=== PATIENT | male | born 1965 | race African-American/Black ===

== ENCOUNTER 2018-03-09 10:35 | Emergency (ER) | END 2018-03-09 10:56 | disposition home or self-care (01) ==

== ENCOUNTER 2019-01-08 15:42 | Inpatient (IN) | payer OTHER ==
[~2019-01-08] VITALS: Ht 172.7 cm; Wt 78.6 kg
[~2019-01-08 15:42] MED LIST: CIPR500T4 PO; HYDR-4011 PO; QUET300T5 PO
[2019-01-08 20:56] VITALS: Ht 172.7 cm; Wt 78.6 kg
--- NOTE | 2019-01-08 21:28 | HP ---
Date/Time of Note Date/Time of Note DATE: 01/08/19 TIME: 21:28 Assessment/Plan VTE Prophylaxis SCD applied (from Nsg): Yes Pharmacological prophylaxis: NA/contraindicated Pharm contraindication: low risk/ambulating Assessment/Plan Hospital Course This a 53 year old male being admitted to the med surg floor for: #1 Right Nephrolothiasis with hydrouteronephrosis: 7mm right distal ureteral calculus. Cr. was. 2.01. IV fluid hydration with Normal saline. flomax. Strain urine. KUB in am. Will consult urology for possible procedural intervention. #2 JOSSELINE: secondary to obstructive uropathy. Cr. 2.01. Will monitor renal function, iv fluid hydration, flomax, monitor renal function. will consult urology. #3. Hx of nephrolithiasis: management as per above #4 illicit drug use: Reported to the RN recent use of amphetamines and cocaine, will check urine drug screen. PRN Ativan for any signs of withdrawal #5 dvt and gi prophylaxis: scds, no gi prophylaxis. shared services manager consult: patient is homeless. further treatment strategy as per the clinical course. HPI/ROS Admit Date/Time Admit Date/Time Jan 08, 2019 at 20:08 Hx of Present Illness Chief complaint: Right lower abdominal pain This is a 53-year-old homeless male who presented to [facility] with complaints of right lower abdominal pain. Patient was subsequent transferred to [facility] secondary to insurance purposes. Patient has a history of kidney stones and lithotripsy. He reports pain on the right lower abdomen/flank for the last two days. Denies any chest pain, nausea, vomitting, or sob. Does not report overt bleeding. The patient denied any drug history to me, he did report to the nurse that he does use amphetamines and cocaine and had used it recently. allergies: nkda meds: none Vitals on presentation to the transferring facility: Blood pressure 149/91/heart rate 100/temperature 98 F/respirations 18/pulse ox SPO2 100% on room air CBC: Showed white blood cell count of 12.2/hemoglobin 14.7/hematocrit 44.6/plate let count 316 BMP showed: Sodium 143/potassium 4.2/chloride 107/CO2 23/BUN 23/creatinine 2.01 Urinalysis showed: Large blood 3+ was negative for ketones negative for nitrites and negative for leuk esterase and white blood cells was 0-5 CT of the abdomen pelvis without contrast showed 7 mm right distal ureteral calculus resulting in moderate right-sided hydroureteronephrosis. Right-sided perinephric stranding is additionally noted. Bilateral renal calculi. Minimal colonic diverticulosis. Abundant amount of fecal matter within the colon. ROS Const: As per HPI Eyes : No pain discharge or redness or change in visual acuity ENT: No pain, sore throat, congestion, congestion, dysphagia or discharge Respiratory: No shortness of breath, cough, sputum, wheezing, or pleuritic pain Cardiovascular: No chest pain, palpitation, PND, or edema GI : no change in appetite, abdominal pain, nausea, vomiting, diarrhea, constipation, or change in the color his stool Genitourinary: As per HPI Musculoskeletal: No joint pain, back pain, neck pain, restricted range of motion in neck or joints Skin: No rash, bruising or hives Neuro: No headache, dizziness, syncope, seizure, focal weakness Endocrine: No polyuria, polydipsia, temperature intolerance Psych: No hallucination, depression, anxiety or suicidal ideation PMH/Family/Social Past Medical History Nephrolithiasis Coded Allergies: No Known Drug Allergies (Verified Allergy, Unknown, 03/07/18) Past Surgical History Laser lithotripsy, Insertion/removal of ureteral stent Family History Significant Family History: no pertinent family hx Social History Smoking Status: Current some day smoker Drug Use: cocaine, other (Methamphetamine) Exam/Review of Systems Exam Exam General: Patient is currently lying in bed he does not appear to be in any acute distress HEENT: Atraumatic, normocephalic. The pupils are equal, round and reactive. Extraocular motor are intact Neck: Supple with full range of motion. No rigidity or meningismus Chest: Nontender Lungs: Clear to auscultation bilaterally no crackles rales or wheezing Heart: Normal S1-S2, Regular rhythm and rate. No murmur, S3, or S4 Abdomen: Soft, nontender, nondistended, normal bowel sounds, patient currently does not have any CVA tenderness palpation bilaterally Extremities: Normal to inspection, no edema no cyanosis Neurologic: Normal mental status, speech normal, cranial nerves II through XII are intact, motor and sensory are intact, Psych: Currently appears to be cooperative and is not anxious EDU RO Jan 08, 2019:28
[2019-01-08] MEDS ORDERED: ONDANSETRON 4 MG INJ IV PRN (21:30)
[2019-01-08] MEDS ORDERED: ACETAMINOPHEN 325 MG TAB PO PRN (21:30)
[2019-01-08] MEDS ORDERED: BISACODYL (EC) 5 MG TAB PO PRN (21:30)
[2019-01-08] MEDS ORDERED: DOCUSATE SODIUM 100 MG CAP PO PRN (21:30)
[2019-01-08] MEDS ORDERED: NACL 0.9% 3 ML SYG IV SCH (21:30)
[2019-01-08] MEDS: SOD CHLORIDE 0.9% 1,000 ML IV SCH (21:58)
[2019-01-08] MEDS: TAMSULOSIN (SR) 0.4 MG CAP PO SCH (21:58)
[2019-01-08 22:15] VITALS: BP 157/93; PULSE 87; RESP 20
[2019-01-09] VITALS (8 sets, daily range): BP systolic 135–146; BP diastolic 76–90; PULSE 68–102; RESP 16–20
[2019-01-09] MEDS: CEFTRIAXONE 1 GM/50 ML (PMX) 50 ML IVPB SCH (02:11)
[2019-01-09] MEDS: HYDROCODONE/APAP (5/325) TAB PO PRN ×2 (03:24→16:21)
[2019-01-09] MEDS: HYDROmorphONE 0.5 MG/0.5 ML SYG IV PRN ×2 (04:25→19:12)
[2019-01-09] MEDS: SOD CHLORIDE 0.9% 1,000 ML IV SCH ×3 (06:32→21:21)
--- NOTE | 2019-01-09 12:22 | PN ---
Date/Time of Note Date/Time of Note DATE: 01/09/19 TIME: 12:20 Assessment/Plan VTE Prophylaxis Risk score (from Ns)>0 risk: 1 SCD applied (from Ns): No SCD contraindicated: other Pharmacological prophylaxis: NA/contraindicated Pharm contraindication: low risk/ambulating Lines/Catheters IV [facility]from [facility] Saline Lock Assessment/Plan Hospital Course SUBJECTIVE: Complains of a toothache. OBJECTIVE: Physical Exam General: Adequately build 53 year-old male lying in bed in no apparent distress. HEENT: Normocephalic, atraumatic. Eyes: Anicteric sclerae, conjunctivae clear. ENT: Nasal septum midline, oral mucosa moist. Neck supple, no JVD noticed. Respiratory: Bilaterally clear breath sounds. No use of accessory muscles of respiration. No adventitious breath sounds. Cardiovascular: S1, S2 heard. Regular rate and rhythm. Abdomen: Soft, nontender, and nondistended. Bowel sounds positive in all 4 quadrants. Genitourinary: Deferred. Extremities: No cyanosis, no clubbing, no edema. Peripheral pulses palpable. Neurologic: Cranial nerves II through XII grossly intact. The patient is awake, alert, and oriented. Skin: Normal skin turgor. No skin rashes. Labs & Vitals per chart ASSESSMENT & PLAN 53-year-old male who is homeless who presented to the local emergency room with chief complaint of right lower abdominal/flank pain. The patient was noticed to have a 7 mm right distal ureteral calculus with resultant moderate right-sided hydroureteronephrosis along with the right-sided perinephric stranding. The patient was transferred to [facility] for further evaluation and management because of insurance reasons. 1. 7 mm distal ureteral calculus with right-sided hydroureteronephrosis. -Continue pain control. -Continue empiric antimicrobials. -Urology evaluation pending. -Continue tamsulosin. 2. Positive urinalysis. -Secondary to underlying right sided ureteral calculus. -Continue continue empiric antimicrobials -Await final cultures. 3. Acute kidney injury. -Most probably secondary to underlying obstructive uropathy. -Monitor BUN and creatinine closely. -Use nephrotoxic drugs with caution. 4. Substance abuse -Drug screen positive for cocaine and amphetamines. -Cessation will be advised. 5. Homeless status. -Obtain social work consult. 6. Fluids, electrolytes, and nutrition. -Regular diet. 7. DVT prophylaxis. -Bilateral SCDs. 8. Plan. -Continue pain control. -Continue antimicrobials. -Continue straining of urine. -Await further urology recommendations. The patient was seen in collaboration with Dr. Fabian. Result Diagram: 01/09/19 0534 01/09/19 0534 Results 24hrs Laboratory Tests Test 01/08/19 21:48 01/08/19 23:30 01/09/19 05:34 Prothrombin Time 12.3 Prothrombin Time Ratio 1.0 INR International Normalized Ratio 0.90 Activated Partial Thromboplast Time 29.2 Urine Color YELLOW Urine Clarity CLEAR Urine pH 6.0 Urine Specific [place] 1.015 Urine Ketones TRACE A Urine Nitrite NEGATIVE Urine Bilirubin NEGATIVE Urine Urobilinogen NEGATIVE Urine Leukocyte Esterase TRACE A Urine Microscopic RBC 65 H Urine Microscopic WBC 15 H Urine Hemoglobin 3+ H Urine Glucose 1+ H Urine Total Protein NEGATIVE Urine Opiates Screen Negative Urine Barbiturates Negative Urine Amphetamines Screen POSITIVE Urine Benzodiazepines Screen Negative Urine Cocaine Screen Positive Urine Cannabinoids Negative White Blood Count 8.3 Red Blood Count 4.94 Hemoglobin 13.9 L Hematocrit 41.8 L Mean Corpuscular Volume 84.6 Mean Corpuscular Hemoglobin 28.1 L Mean Corpuscular Hemoglobin Concent 33.3 Red Cell Distribution Width 12.3 Platelet Count 275 Mean Platelet Volume 8.1 Immature Granulocytes % 0.200 Neutrophils % 71.7 Lymphocytes % 15.3 Monocytes % 11.0 Eosinophils % 1.4 Basophils % 0.4 Nucleated Red Blood Cells % 0.0 Immature Granulocytes # 0.020 Neutrophils # 6.0 Lymphocytes # 1.3 Monocytes # 0.9 Eosinophils # 0.1 Basophils # 0.0 Nucleated Red Blood Cells # 0.0 Sodium Level 140 Potassium Level 4.1 Chloride Level 106 Carbon Dioxide Level 24 Anion Gap 10 Blood Urea Nitrogen 20 Creatinine 1.82 H Est Glomerular Filtrat Rate mL/min 48 L Glucose Level 107 Calcium Level 8.8 Magnesium Level 2.1 Total Bilirubin 0.4 Direct Bilirubin 0.00 Indirect Bilirubin 0.4 Aspartate Amino Transf (AST/SGOT) 25 Alanine Aminotransferase (ALT/SGPT) 23 Alkaline Phosphatase 80 Total Protein 6.6 Albumin 3.5 Globulin 3.10 Albumin/Globulin Ratio 1.12 Exam/Review of Systems Exam Vitals Vital Signs Date Temp Pulse Resp B/P (MAP) Pulse Ox O2 O2 Flow FiO2 Time Delivery Rate 01/09/19 98.2 77 19 141/89 97 11:52 (106) Intake and Output 01/08/19 01/08/19 01/09/19 1515:00 23:00 07:00 IntakeIntake Total 1750 ml OutputOutput Total 800 ml BalanceBalance 950 ml Results Results 24hrs Laboratory Tests Test 01/08/19 21:48 01/08/19 23:30 01/09/19 05:34 Prothrombin Time 12.3 Prothrombin Time Ratio 1.0 INR International Normalized Ratio 0.90 Activated Partial Thromboplast Time 29.2 Urine Color YELLOW Urine Clarity CLEAR Urine pH 6.0 Urine Specific [place] 1.015 Urine Ketones TRACE A Urine Nitrite NEGATIVE Urine Bilirubin NEGATIVE Urine Urobilinogen NEGATIVE Urine Leukocyte Esterase TRACE A Urine Microscopic RBC 65 H Urine Microscopic WBC 15 H Urine Hemoglobin 3+ H Urine Glucose 1+ H Urine Total Protein NEGATIVE Urine Opiates Screen Negative Urine Barbiturates Negative Urine Amphetamines Screen POSITIVE Urine Benzodiazepines Screen Negative Urine Cocaine Screen Positive Urine Cannabinoids Negative White Blood Count 8.3 Red Blood Count 4.94 Hemoglobin 13.9 L Hematocrit 41.8 L Mean Corpuscular Volume 84.6 Mean Corpuscular Hemoglobin 28.1 L Mean Corpuscular Hemoglobin Concent 33.3 Red Cell Distribution Width 12.3 Platelet Count 275 Mean Platelet Volume 8.1 Immature Granulocytes % 0.200 Neutrophils % 71.7 Lymphocytes % 15.3 Monocytes % 11.0 Eosinophils % 1.4 Basophils % 0.4 Nucleated Red Blood Cells % 0.0 Immature Granulocytes # 0.020 Neutrophils # 6.0 Lymphocytes # 1.3 Monocytes # 0.9 Eosinophils # 0.1 Basophils # 0.0 Nucleated Red Blood Cells # 0.0 Sodium Level 140 Potassium Level 4.1 Chloride Level 106 Carbon Dioxide Level 24 Anion Gap 10 Blood Urea Nitrogen 20 Creatinine 1.82 H Est Glomerular Filtrat Rate mL/min 48 L Glucose Level 107 Calcium Level 8.8 Magnesium Level 2.1 Total Bilirubin 0.4 Direct Bilirubin 0.00 Indirect Bilirubin 0.4 Aspartate Amino Transf (AST/SGOT) 25 Alanine Aminotransferase (ALT/SGPT) 23 Alkaline Phosphatase 80 Total Protein 6.6 Albumin 3.5 Globulin 3.10 Albumin/Globulin Ratio 1.12 Medications Medication Current Medications Sodium Chloride 1,000 ml @ 125 mls/hr Q8H IV Last administered on 01/09/19at 06:32; Admin Dose 125 MLS/HR; Start 01/08/19 at 21:21 IV Flush (NS 3 ml) 3 ml PER PROTOCOL IV ; Start 01/08/19 at 21:30 Ondansetron HCl (Zofran Inj) 4 mg Q6H PRN IV NAUSEA/VOMITING; Start 01/08/19 at 21:30 Acetaminophen (Tylenol Tab) 650 mg Q6H PRN PO .PAIN 1-3 OR TEMP; Start 01/08/19 at 21:30 Acetaminophen/ Hydrocodone Bitart ([place] (5/325)) 1 tab Q6H PRN PO .MOD PAIN 4- 6 Last administered on 01/09/19at 03:24; Admin Dose 1 TAB; Start 01/08/19 at 21:30 Hydromorphone HCl (Dilaudid) 0.5 mg Q4H PRN IV .SEVERE PAIN 7-10 Last administered on 01/09/19 04:25; Admin Dose 0.5 MG; Start 01/08/19 at 21:30 Docusate Sodium (Colace) 100 mg Q12H PRN PO .CONSTIPATION; Start 01/08/19 at 21:30 Bisacodyl (Dulcolax) 5 mg DAILY PRN PO .CONSTIPATION; Start 01/08/19 at 21:30 Tamsulosin HCl (Flomax) 0.4 mg HS PO Last administered on 01/08/19at 21:58; Admin Dose 0.4 MG; Start 01/08/19 at 21:30 Ceftriaxone Sodium 50 ml @ 100 mls/hr Q24H IVPB Last administered on 01/09/19at 02:11; Admin Dose 100 MLS/HR; Start 01/09/19 at 02:00 Lorazepam (Ativan) 1 mg Q4H PRN IV AGITATION/ANXIETY; Start 01/09/19 at 02:00 PRASANNA CORTES NP Jan 09, 2019 12:22
[2019-01-09] MEDS: TAMSULOSIN (SR) 0.4 MG CAP PO SCH (20:22)
[2019-01-09] MEDS: LORAZEPAM 2 MG INJ IV PRN (20:23)
--- NOTE | 2019-01-09 21:27 | CONS ---
Assessment/Plan Assessment/Plan Hospital Course (Demo Recall) 53-year-old homeless male presented to [facility] wi th complaints of right lower abdominal pain. Patient was subsequent transferred to [facility] secondary to insurance purposes. Patient has a history of kidney stones and lithotripsy. He reports pain on the right lower abdomen/flank for the last two days prior to admission. Denies any nausea or vomiting and there is no history of hematuria or dysuria. He did have left upper ureteral stone on which I operated about an year ago KUB done did not show the stone. The stone could be radiolucent or could be obscured by the bowel contents or the bony pelvis We will strain the urine and put him on tamsulosin, repeat the KUB in a.m. and manage his pain. If he does not pass the stone we may have to do a cystoscopy and right ureteroscopy laser lithotripsy and insert a JJ stent. Consultation Date/Type/Reason Admit Date/Time Jan 08, 2019 at 20:08 Date of Consultation: Jan 09, 2019 Type of Consult Urology Reason for Consultation Distal right ureteral stone Requesting Provider: EDU RO Date/Time of Note DATE: 01/09/19 TIME: 21:21 Hx of Present Illness 53-year-old homeless male presented to [facility] with complaints of right lower abdominal pain. Patient was subsequent transferred to [facility] secondary to insurance purposes. Patient has a history of kidney stones and lithotripsy. He reports pain on the right lower abdomen/flank for the last two days prior to admission. Denies any nausea or vomiting and there is no history of hematuria or dysuria. He did have left upper ureteral stone on which I operated about an year ago Constitutional: no complaints Eyes: no complaints ENT: no complaints Respiratory: no complaints Cardiovascular: no complaints Gastrointestinal: no complaints; No nausea, No vomiting Genitourinary: flank pain (Right side) Musculoskeletal: no complaints Skin: no complaints Neurologic: no complaints Endocrine: no complaints Lymphatic: no complaints Psychological: no complaints Past Medical History Medical History: other (History of kidney stones) Home Meds Active Scripts Hydrocodone/Acetaminophen ([place] 5-325 Tablet) 1 Each Tablet, 1 TAB PO Q6H PRN for PAIN, #30 TAB Prov:TESSA PIMENTEL PA-C 03/09/18 Hydrocodone/Acetaminophen ([place] 5-325 Tablet) 1 Each Tablet, 1 TAB PO Q6H PRN for PAIN, #30 TAB Prov:TESSA PIMENTEL PA-C 03/09/18 Ciprofloxacin Hcl* (Ciprofloxacin Hcl*) 500 Mg Tablet, 500 MG PO BID for 7 Days, TAB Prov:TESSA PIMENTEL PA-C 03/09/18 Reported Medications Quetiapine Fumarate* (Seroquel* XR) 300 Mg Tab.sr.24h, 300 MG PO DAILY PRN for NEEDED, #30 TAB 03/07/18 Medications Current Medications Sodium Chloride 1,000 ml @ 125 mls/hr Q8H IV Last administered on 01/09/19at 06:32; Admin Dose 125 MLS/HR; Start 01/08/19 at 21:21 IV Flush (NS 3 ml) 3 ml PER PROTOCOL IV ; Start 01/08/19 at 21:30 Ondansetron HCl (Zofran Inj) 4 mg Q6H PRN IV NAUSEA/VOMITING; Start 01/08/19 at 21:30 Acetaminophen (Tylenol Tab) 650 mg Q6H PRN PO .PAIN 1-3 OR TEMP Last administered on 01/09/19at 20:23; Admin Dose 650 MG; Start 01/08/19 at 21:30 Acetaminophen/ Hydrocodone Bitart ([place] (5/325)) 1 tab Q6H PRN PO .MOD PAIN 4- 6 Last administered on 01/09/19at 16:21; Admin Dose 1 TAB; Start 01/08/19 at 21:30 Hydromorphone HCl (Dilaudid) 0.5 mg Q4H PRN IV .SEVERE PAIN 7-10 Last administered on 01/09/19at 19:12; Admin Dose 0.5 MG; Start 01/08/19 at 21:30 Docusate Sodium (Colace) 100 mg Q12H PRN PO .CONSTIPATION; Start 01/08/19 at 21:30 Bisacodyl (Dulcolax) 5 mg DAILY PRN PO .CONSTIPATION; Start 01/08/19 at 21:30 Tamsulosin HCl (Flomax) 0.4 mg HS PO Last administered on 01/09/19at 20:22; Admin Dose 0.4 MG; Start 01/08/19 at 21:30 Ceftriaxone Sodium 50 ml @ 100 mls/hr Q24H IVPB Last administered on 01/09/19at 02:11; Admin Dose 100 MLS/HR; Start 01/09/19 at 02:00 Lorazepam (Ativan) 1 mg Q4H PRN IV AGITATION/ANXIETY Last administered on at 20:23; Admin Dose 1 MG; Start 01/09/19 at 02:00 Allergies: Coded Allergies: No Known Drug Allergies (Verified Allergy, Unknown, 03/07/18) Past Surgical History Past Surgical Hx: other (Left ureteroscopy and laser lithotripsy in February 2018) Social History Alcohol Use: sober Smoking Status: Current some day smoker Drug Use: cocaine, other (Methamphetamine) Exam/Review of Systems Exam Vitals Vital Signs Date Temp Pulse Resp B/P (MAP) Pulse Ox O2 O2 Flow FiO2 Time Delivery Rate 01/09/19 97.9 97 16 146/89 97 Room Air 17:19 (108) Intake and Output 01/08/19 01/08/19 01/09/19 1515:00 23:00 07:00 IntakeIntake Total 1750 ml OutputOutput Total 800 ml BalanceBalance 950 ml Constitutional: alert, oriented Psych: no complaints Head: normocephalic Eyes: nl conjunctiva ENMT: nl external ears & nose Neck: supple Respiratory: normal air movement; No wheezing Cardiovascular: No jugular venous distention (JVD) Gastrointestinal: tender (Right lower quadrant) Genitourinary - Male: nl penis, nl scrotum, CVA tenderness (Right side) Musculoskeletal: nl extremities to inspection Extremities: No calf tenderness Neurological: nl mental status Skin: nl turgor Results Result Diagram: 01/09/19 0534 01/09/19 0534 Results 24hrs Laboratory Tests Test 01/08/19 21:48 01/08/19 23:30 01/09/19 05:34 Prothrombin Time 12.3 Prothrombin Time Ratio 1.0 INR International Normalized Ratio 0.90 Activated Partial Thromboplast Time 29.2 Urine Color YELLOW Urine Clarity CLEAR Urine pH 6.0 Urine Specific [place] 1.015 Urine Ketones TRACE A Urine Nitrite NEGATIVE Urine Bilirubin NEGATIVE Urine Urobilinogen NEGATIVE Urine Leukocyte Esterase TRACE A Urine Microscopic RBC 65 H Urine Microscopic WBC 15 H Urine Hemoglobin 3+ H Urine Glucose 1+ H Urine Total Protein NEGATIVE Urine Opiates Screen Negative Urine Barbiturates Negative Urine Amphetamines Screen POSITIVE Urine Benzodiazepines Screen Negative Urine Cocaine Screen Positive Urine Cannabinoids Negative White Blood Count 8.3 Red Blood Count 4.94 Hemoglobin 13.9 L Hematocrit 41.8 L Mean Corpuscular Volume 84.6 Mean Corpuscular Hemoglobin 28.1 L Mean Corpuscular Hemoglobin Concent 33.3 Red Cell Distribution Width 12.3 Platelet Count 275 Mean Platelet Volume 8.1 Immature Granulocytes % 0.200 Neutrophils % 71.7 Lymphocytes % 15.3 Monocytes % 11.0 Eosinophils % 1.4 Basophils % 0.4 Nucleated Red Blood Cells % 0.0 Immature Granulocytes # 0.020 Neutrophils # 6.0 Lymphocytes # 1.3 Monocytes # 0.9 Eosinophils # 0.1 Basophils # 0.0 Nucleated Red Blood Cells # 0.0 Sodium Level 140 Potassium Level 4.1 Chloride Level 106 Carbon Dioxide Level 24 Anion Gap 10 Blood Urea Nitrogen 20 Creatinine 1.82 H Est Glomerular Filtrat Rate mL/min 48 L Glucose Level 107 Calcium Level 8.8 Magnesium Level 2.1 Total Bilirubin 0.4 Direct Bilirubin 0.00 Indirect Bilirubin 0.4 Aspartate Amino Transf (AST/SGOT) 25 Alanine Aminotransferase (ALT/SGPT) 23 Alkaline Phosphatase 80 Total Protein 6.6 Albumin 3.5 Globulin 3.10 Albumin/Globulin Ratio 1.[address] scan done at [facility] showed a 7 mm in the distal right ureter. He also does have multiple small punctate stones over both kidneys Medications Medication Current Medications Sodium Chloride 1,000 ml @ 125 mls/hr Q8H IV Last administered on 01/09/19at 06:32; Admin Dose 125 MLS/HR; Start 01/08/19 at 21:21 IV Flush (NS 3 ml) 3 ml PER PROTOCOL IV ; Start 01/08/19 at 21:30 Ondansetron HCl (Zofran Inj) 4 mg Q6H PRN IV NAUSEA/VOMITING; Start 01/08/19 at 21:30 Acetaminophen (Tylenol Tab) 650 mg Q6H PRN PO .PAIN 1-3 OR TEMP Last administered on 01/09/19at 20:23; Admin Dose 650 MG; Start 01/08/19 at 21:30 Acetaminophen/ Hydrocodone Bitart ([place] (5/325)) 1 tab Q6H PRN PO .MOD PAIN 4- 6 Last administered on 01/09/19 16:21; Admin Dose 1 TAB; Start 01/08/19 at 21:30 Hydromorphone HCl (Dilaudid) 0.5 mg Q4H PRN IV .SEVERE PAIN 7-10 Last administered on 01/09/19at 19:12; Admin Dose 0.5 MG; Start 01/08/19 at 21:30 Docusate Sodium (Colace) 100 mg Q12H PRN PO .CONSTIPATION; Start 01/08/19 at 21:30 Bisacodyl (Dulcolax) 5 mg DAILY PRN PO .CONSTIPATION; Start 01/08/19 at 21:30 Tamsulosin HCl (Flomax) 0.4 mg HS PO Last administered on 01/09/19 20:22; Admin Dose 0.4 MG; Start 01/08/19 at 21:30 Ceftriaxone Sodium 50 ml @ 100 mls/hr Q24H IVPB Last administered on 01/09/19 02:11; Admin Dose 100 MLS/HR; Start 01/09/19 at 02:00 Lorazepam (Ativan) 1 mg Q4H PRN IV AGITATION/ANXIETY Last administered on 01/09/19 20:23; Admin Dose 1 MG; Start 01/09/19 at 02:00 ESTEPHANIA WONG MD Jan 09, 2019 21:27
[2019-01-10] MEDS: HYDROmorphONE 0.5 MG/0.5 ML SYG IV PRN ×4 (00:14→22:25)
[2019-01-10] MEDS: SOD CHLORIDE 0.9% 1,000 ML IV SCH ×4 (01:14→22:27)
[2019-01-10] MEDS: CEFTRIAXONE 1 GM/50 ML (PMX) 50 ML IVPB SCH (01:15)
[2019-01-10 02:00] VITALS: BP 146/88; PULSE 81; RESP 20
[2019-01-10] MEDS: HYDROCODONE/APAP (5/325) TAB PO PRN (07:05)
--- NOTE | 2019-01-10 07:57 | PN ---
Date/Time of Note Date/Time of Note DATE: 01/10/19 TIME: 07:57 Assessment/Plan VTE Prophylaxis Risk score (from Nsg)>0 risk: 1 SCD applied (from Nsg): Yes Pharmacological prophylaxis: NA/contraindicated Pharm contraindication: low risk/ambulating Lines/Catheters IV Catheter Type (from Nrsg): Peripheral IV Assessment/Plan Hospital Course SUBJECTIVE: Complains of right flank pain. OBJECTIVE: Physical Exam General: Adequately build 53 year-old male lying in bed in no apparent distress. HEENT: Normocephalic, atraumatic. Eyes: Anicteric sclerae, conjunctivae clear. ENT: Nasal septum midline, oral mucosa moist. Neck supple, no JVD noticed. Respiratory: Bilaterally clear breath sounds. No use of accessory muscles of respiration. No adventitious breath sounds. Cardiovascular: S1, S2 heard. Regular rate and rhythm. Abdomen: Soft, nontender, and nondistended. Bowel sounds positive in all 4 quadrants. Genitourinary: Deferred. Extremities: No cyanosis, no clubbing, no edema. Peripheral pulses palpable. Neurologic: Cranial nerves II through XII grossly intact. The patient is awake, alert, and oriented. Skin: Normal skin turgor. No skin rashes. Labs & Vitals per chart ASSESSMENT & PLAN 53-year-old male who is homeless who presented to the local emergency room with chief complaint of right lower abdominal/flank pain. The patient was noticed to have 7 mm right distal ureteral calculus with resultant moderate right-sided hydroureteronephrosis along with the right-sided perinephric stranding. The patient was transferred to [facility] for further evaluation and management because of insurance reasons. 1. 7 mm distal ureteral calculus with right-sided hydroureteronephrosis. -Continue pain control. -Continue empiric antimicrobials. -Urology evaluation pending. -Continue tamsulosin. 2. Positive urinalysis. -Secondary to underlying right sided ureteral calculus. -Continue continue empiric antimicrobials -Await final cultures. 3. Acute kidney injury. -Most probably secondary to underlying obstructive uropathy. -Monitor BUN and creatinine closely. -Use nephrotoxic drugs with caution. 4. Substance abuse -Drug screen positive for cocaine and amphetamines. -Cessation will be advised. 5. Homeless status. -Obtain social work consult. 6. Fluids, electrolytes, and nutrition. -Regular diet. 7. DVT prophylaxis. -Bilateral SCDs. 8. Plan. -Continue pain control. -Continue antimicrobials. -Continue straining of urine. -Await further urology recommendations. The patient was seen in collaboration with Dr. Fabian. Result Diagram: 01/10/19 0446 01/10/19 0446 Results 24hrs Laboratory Tests Test 01/10/19 04:46 White Blood Count 7.0 Red Blood Count 4.83 Hemoglobin 13.5 L Hematocrit 41.3 L Mean Corpuscular Volume 85.5 Mean Corpuscular Hemoglobin 28.0 L Mean Corpuscular Hemoglobin Concent 32.7 Red Cell Distribution Width 12.3 Platelet Count 256 Mean Platelet Volume 8.0 Immature Granulocytes % 0.400 Neutrophils % 65.9 Lymphocytes % 19.3 Monocytes % 11.9 H Eosinophils % 2.1 Basophils % 0.4 Nucleated Red Blood Cells % 0.0 Immature Granulocytes # 0.030 Neutrophils # 4.6 Lymphocytes # 1.4 Monocytes # 0.8 Eosinophils # 0.2 Basophils # 0.0 Nucleated Red Blood Cells # 0.0 Sodium Level 143 Potassium Level 4.2 Chloride Level 110 Carbon Dioxide Level 25 Anion Gap 8 Blood Urea Nitrogen 22 H Creatinine 1.73 H Est Glomerular Filtrat Rate mL/min 50 L Glucose Level 124 Calcium Level 8.9 Phosphorus Level 3.8 Magnesium Level 2.2 Exam/Review of Systems Exam Vitals Vital Signs Date Temp Pulse Resp B/P (MAP) Pulse Ox O2 O2 Flow FiO2 Time Delivery Rate 01/10/19 98.0 81 20 146/88 94 Room Air 02:00 (107) Intake and Output 01/09/19 01/09/19 01/10/19 1515:00 23:00 07:00 IntakeIntake Total 1500 ml 1050 ml OutputOutput Total 900 ml 750 ml BalanceBalance 600 ml 300 ml Results Results 24hrs Laboratory Tests Test 01/10/19 04:46 White Blood Count 7.0 Red Blood Count 4.83 Hemoglobin 13.5 L Hematocrit 41.3 L Mean Corpuscular Volume 85.5 Mean Corpuscular Hemoglobin 28.0 L Mean Corpuscular Hemoglobin Concent 32.7 Red Cell Distribution Width 12.3 Platelet Count 256 Mean Platelet Volume 8.0 Immature Granulocytes % 0.400 Neutrophils % 65.9 Lymphocytes % 19.3 Monocytes % 11.9 H Eosinophils % 2.1 Basophils % 0.4 Nucleated Red Blood Cells % 0.0 Immature Granulocytes # 0.030 Neutrophils # 4.6 Lymphocytes # 1.4 Monocytes # 0.8 Eosinophils # 0.2 Basophils # 0.0 Nucleated Red Blood Cells # 0.0 Sodium Level 143 Potassium Level 4.2 Chloride Level 110 Carbon Dioxide Level 25 Anion Gap 8 Blood Urea Nitrogen 22 H Creatinine 1.73 H Est Glomerular Filtrat Rate mL/min 50 L Glucose Level 124 Calcium Level 8.9 Phosphorus Level 3.8 Magnesium Level 2.2 Medications Medication Current Medications Sodium Chloride 1,000 ml @ 125 mls/hr Q8H IV Last administered on 01/10/19at 0 1:14; Admin Dose 125 MLS/HR; Start 01/08/19 at 21:21 IV Flush (NS 3 ml) 3 ml PER PROTOCOL IV ; Start 01/08/19 at 21:30 Ondansetron HCl (Zofran Inj) 4 mg Q6H PRN IV NAUSEA/VOMITING; Start 01/08/19 at 21:30 Acetaminophen (Tylenol Tab) 650 mg Q6H PRN PO .PAIN 1-3 OR TEMP Last administered on 01/09/19at 20:23; Admin Dose 650 MG; Start 01/08/19 at 21:30 Acetaminophen/ Hydrocodone Bitart ([place] (5/325)) 1 tab Q6H PRN PO .MOD PAIN 4- 6 Last administered on 01/10/19at 07:05; Admin Dose 1 TAB; Start 01/08/19 at 21:30 Hydromorphone HCl (Dilaudid) 0.5 mg Q4H PRN IV .SEVERE PAIN 7-10 Last administered on 01/10/19at 05:27; Admin Dose 0.5 MG; Start 01/08/19 at 21:30 Docusate Sodium (Colace) 100 mg Q12H PRN PO .CONSTIPATION; Start 01/08/19 at 21:30 Bisacodyl (Dulcolax) 5 mg DAILY PRN PO .CONSTIPATION; Start 01/08/19 at 21:30 Tamsulosin HCl (Flomax) 0.4 mg HS PO Last administered on 01/09/19at 20:22; Admin Dose 0.4 MG; Start 01/08/19 at 21:30 Ceftriaxone Sodium 50 ml @ 100 mls/hr Q24H IVPB Last administered on 01/10/19at 01:15; Admin Dose 100 MLS/HR; Start 01/09/19 at 02:00 Lorazepam (Ativan) 1 mg Q4H PRN IV AGITATION/ANXIETY Last administered on 01/09/19at 20:23; Admin Dose 1 MG; Start 01/09/19 at 02:00 PRASANNA CORTES NP Jan 10, 2019 07:57
[2019-01-10 08:21] VITALS: BP 158/96; PULSE 85; RESP 18
[2019-01-10] MEDS: MUPIROCIN 2% 22 GM OINT TOP SCH ×2 (12:36→21:58)
--- NOTE | 2019-01-10 13:33 | CONS ---
Consult Date/Type/Reason Admit Date/Time Jan 09, 2019 at 15:29 Initial Consult Date 01/09/19 Type of Consultation: Urology Reason for Consultation Distal right ureteral stone Requesting Provider: EDU RO Date/Time of Note DATE: 01/10/19 TIME: 13:29 Subjective Patient is comfortable at the present and has no severe pain. Objective Vitals Vital Signs Date Temp Pulse Resp B/P (MAP) Pulse Ox O2 O2 Flow FiO2 Time Delivery Rate 01/10/19 97.7 85 18 158/96 99 08:21 (116) 01/10/19 Room Air 02:00 Intake and Output 01/09/19 01/09/19 01/10/19 1515:00 23:00 07:00 IntakeIntake Total 1500 ml 1050 ml OutputOutput Total 900 ml 750 ml BalanceBalance 600 ml 300 ml Exam Mild right lower quadrant tenderness. The urine is clear. KUB was done and the stone is not seen as it may be obscured by the bowel content. Results/Medications Result Diagram: 01/10/19 0446 01/10/19 0446 Results 24 hrs Laboratory Tests Test 01/10/19 04:46 01/10/19 11:45 White Blood Count 7.0 Red Blood Count 4.83 Hemoglobin 13.5 L Hematocrit 41.3 L Mean Corpuscular Volume 85.5 Mean Corpuscular Hemoglobin 28.0 L Mean Corpuscular Hemoglobin Concent 32.7 Red Cell Distribution Width 12.3 Platelet Count 256 Mean Platelet Volume 8.0 Immature Granulocytes % 0.400 Neutrophils % 65.9 Lymphocytes % 19.3 Monocytes % 11.9 H Eosinophils % 2.1 Basophils % 0.4 Nucleated Red Blood Cells % 0.0 Immature Granulocytes # 0.030 Neutrophils # 4.6 Lymphocytes # 1.4 Monocytes # 0.8 Eosinophils # 0.2 Basophils # 0.0 Nucleated Red Blood Cells # 0.0 Sodium Level 143 Potassium Level 4.2 Chloride Level 110 Carbon Dioxide Level 25 Anion Gap 8 Blood Urea Nitrogen 22 H Creatinine 1.73 H Est Glomerular Filtrat Rate mL/min 50 L Glucose Level 124 Calcium Level 8.9 Phosphorus Level 3.8 Magnesium Level 2.2 Lab Scanned Report REFERENCE LAB Positive MRSA from the nares, multidrug-resistant organism Home Meds Active Scripts Hydrocodone/Acetaminophen ([place] 5-325 Tablet) 1 Each Tablet, 1 TAB PO Q6H PRN for PAIN, #30 TAB Prov:TESSA PIMENTEL PA-C 03/09/18 Hydrocodone/Acetaminophen ([place] 5-325 Tablet) 1 Each Tablet, 1 TAB PO Q6H PRN for PAIN, #30 TAB Prov:TESSA PIMENTEL PA-C 03/09/18 Ciprofloxacin Hcl* (Ciprofloxacin Hcl*) 500 Mg Tablet, 500 MG PO BID for 7 Days, TAB Prov:TESSA PIMENTEL PA-C 03/09/18 Reported Medications Quetiapine Fumarate* (Seroquel* XR) 300 Mg Tab.sr.24h, 300 MG PO DAILY PRN for NEEDED, #30 TAB 03/07/18 Medications Current Medications Sodium Chloride 1,000 ml @ 125 mls/hr Q8H IV Last administered on 01/10/19 01:14; Admin Dose 125 MLS/HR; Start 01/08/19 at 21:21 IV Flush (NS 3 ml) 3 ml PER PROTOCOL IV ; Start 01/08/19 at 21:30 Ondansetron HCl (Zofran Inj) 4 mg Q6H PRN IV NAUSEA/VOMITING; Start 01/08/19 at 21:30 Acetaminophen (Tylenol Tab) 650 mg Q6H PRN PO .PAIN 1-3 OR TEMP Last administered on 01/09/19 20:23; Admin Dose 650 MG; Start 01/08/19 at 21:30 Acetaminophen/ Hydrocodone Bitart ([place] (5/325)) 1 tab Q6H PRN PO .MOD PAIN 4- 6 Last administered on 01/10/19 07:05; Admin Dose 1 TAB; Start 01/08/19 at 21:30 Hydromorphone HCl (Dilaudid) 0.5 mg Q4H PRN IV .SEVERE PAIN 7-10 Last administered on 01/10/19 09:38; Admin Dose 0.5 MG; Start 01/08/19 at 21:30 Docusate Sodium (Colace) 100 mg Q12H PRN PO .CONSTIPATION; Start 01/08/19 at 21:30 Bisacodyl (Dulcolax) 5 mg DAILY PRN PO .CONSTIPATION; Start 01/08/19 at 21:30 Tamsulosin HCl (Flomax) 0.4 mg HS PO Last administered on 3/22/19at 20:22; Admin Dose 0.4 MG; Start 01/08/19 at 21:30 Ceftriaxone Sodium 50 ml @ 100 mls/hr Q24H IVPB Last administered on 01/10/19 01:15; Admin Dose 100 MLS/HR; Start 01/09/19 at 02:00 Lorazepam (Ativan) 1 mg Q4H PRN IV AGITATION/ANXIETY Last administered on 01/09/19 20:23; Admin Dose 1 MG; Start 01/09/19 at 02:00 Mupirocin (Bactroban) 1 applic BID TOP Last administered on 01/10/19 12:36; Admin Dose 1 APPLIC; Start 01/10/19 at 10:30 Assessment/Plan Hospital Course (Demo Recall) 53-year-old homeless male presented to [facility] with complaints of right lower abdominal pain. Patient was subsequent transferred to [facility] secondary to insurance purposes. Patient has a history of kidney stones and lithotripsy. He reports pain on the right lower abdomen/flank for the last two days prior to admission. Denies any nausea or vomiting and there is no history of hematuria or dysuria. He did have left upper ureteral stone on which I operated about an year ago KUB repeated and did not show the stone. The stone could be radiolucent or could be obscured by the bowel contents or the bony pelvis Continue to strain the urine and put him on tamsulosin, give him milk of magnesia, repeat the KUB in a.m. and manage his pain. If he does not pass the stone we may have to do a cystoscopy and right ureteroscopy laser lithotripsy and insert a JJ stent. ESTEPHANIA WONG MD Jan 10, 2019 13:33
[2019-01-10 14:00] VITALS: BP 148/88; PULSE 87; RESP 17
[2019-01-10] MEDS ORDERED: MAGNESIUM HYDROXIDE 30ML CUP PO PRN (14:00)
[2019-01-10] MEDS ORDERED: MAGNESIUM HYDROXIDE 30ML CUP PO ONE (14:00)
[2019-01-10 17:04] VITALS: BP 174/104; PULSE 97; RESP 32
[2019-01-10] MEDS ORDERED: LORAZEPAM 2 MG INJ IV STA (17:06)
[2019-01-10] MEDS: LORAZEPAM 2 MG INJ IV PRN ×2 (17:14→22:51)
[2019-01-10 18:03] VITALS: BP 141/84; PULSE 89; RESP 16
[2019-01-10 20:30] VITALS: BP 131/77; RESP 18
[2019-01-10] MEDS: TAMSULOSIN (SR) 0.4 MG CAP PO SCH (21:58)
[2019-01-11 01:34] VITALS: BP 146/88; PULSE 99; RESP 19
[2019-01-11] MEDS: CEFTRIAXONE 1 GM/50 ML (PMX) 50 ML IVPB SCH (02:31)
[2019-01-11] MEDS: SOD CHLORIDE 0.9% 1,000 ML IV SCH ×2 (06:16→18:00)
--- NOTE | 2019-01-11 08:01 | PN ---
Date/Time of Note Date/Time of Note DATE: 01/11/19 TIME: 08:01 Assessment/Plan VTE Prophylaxis Risk score (from Nsg)>0 risk: 1 SCD applied (from Nsg): Yes Pharmacological prophylaxis: NA/contraindicated Pharm contraindication: low risk/ambulating Lines/Catheters IV Catheter Type (from Nrsg): Peripheral IV Urinary Cath still in place: No Assessment/Plan Hospital Course SUBJECTIVE: Right flank pain better controlled. OBJECTIVE: Physical Exam General: Adequately build 53 year-old male lying in bed in no apparent distress. HEENT: Normocephalic, atraumatic. Eyes: Anicteric sclerae, conjunctivae clear. ENT: Nasal septum midline, oral mucosa moist. Neck supple, no JVD noticed. Respiratory: Bilaterally clear breath sounds. No use of accessory muscles of respiration. No adventitious breath sounds. Cardiovascular: S1, S2 heard. Regular rate and rhythm. Abdomen: Soft, nontender, and nondistended. Bowel sounds positive in all 4 quadrants. Genitourinary: Deferred. Extremities: No cyanosis, no clubbing, no edema. Peripheral pulses palpable. Neurologic: Cranial nerves II through XII grossly intact. The patient is awake, alert, and oriented. Skin: Normal skin turgor. No skin rashes. Labs & Vitals per chart ASSESSMENT & PLAN 53-year-old male who is homeless who presented to the local emergency room with chief complaint of right lower abdominal/flank pain. The patient was noticed to have 7 mm right distal ureteral calculus with resultant moderate right-sided hydroureteronephrosis along with the right-sided perinephric stranding. The patient was transferred to [facility] for further evaluation and management because of insurance reasons. 1. 7 mm distal ureteral calculus with right-sided hydroureteronephrosis. -Continue pain control. -Continue empiric antimicrobials. -Urology evaluation pending. -Continue tamsulosin. 2. Positive urinalysis. -Secondary to underlying right sided ureteral calculus. -Continue continue empiric antimicrobials -Await final cultures. 3. Acute kidney injury. -Most probably secondary to underlying obstructive uropathy. -Monitor BUN and creatinine closely. -Use nephrotoxic drugs with caution. 4. Substance abuse -Drug screen positive for cocaine and amphetamines. -Cessation will be advised. 5. MRSA colonization of the nares. -Continue Bactroban. 6. Homeless status. -Obtain social work consult. 7. Fluids, electrolytes, and nutrition. -Regular diet. 8. DVT prophylaxis. -Bilateral SCDs. 9. Plan. -Continue pain control. -Continue antimicrobials. -Continue straining of urine. -Await further urology recommendations. The patient was seen in collaboration with Dr. Fabian. Result Diagram: 01/11/19 0441 01/11/191 Results 24hrs Laboratory Tests Test 01/10/19 11:45 01/11/19 04:41 Lab Scanned Report REFERENCE LAB White Blood Count 8.3 Red Blood Count 4.81 Hemoglobin 13.8 L Hematocrit 41.0 L Mean Corpuscular Volume 85.2 Mean Corpuscular Hemoglobin 28.7 L Mean Corpuscular Hemoglobin Concent 33.7 Red Cell Distribution Width 11.9 Platelet Count 273 Mean Platelet Volume 8.0 Immature Granulocytes % 0.200 Neutrophils % 71.5 Lymphocytes % 16.5 Monocytes % 9.4 Eosinophils % 1.8 Basophils % 0.6 Nucleated Red Blood Cells % 0.0 Immature Granulocytes # 0.020 Neutrophils # 5.9 Lymphocytes # 1.4 Monocytes # 0.8 Eosinophils # 0.2 Basophils # 0.1 Nucleated Red Blood Cells # 0.0 Sodium Level 142 Potassium Level 4.3 Chloride Level 110 Carbon Dioxide Level 26 Anion Gap 6 Blood Urea Nitrogen 23 H Creatinine 1.58 H Est Glomerular Filtrat Rate mL/min 56 L Glucose Level 107 Calcium Level 8.9 Phosphorus Level 3.9 Magnesium Level 2.2 Exam/Review of Systems Exam Vitals Vital Signs Date Temp Pulse Resp B/P (MAP) Pulse Ox O2 O2 Flow FiO2 Time Delivery Rate 01/11/19 98.6 99 19 146/88 97 01:34 (107) 01/10/19 Room Air 18:03 Intake and Output 01/10/19 01/10/19 01/11/19 1515:00 23:00 07:00 IntakeIntake Total 240 ml 1640 ml 1170 ml OutputOutput Total 900 ml 1100 ml 250 ml BalanceBalance -660 ml 540 ml 920 ml Results Results 24hrs Laboratory Tests Test 01/10/19 11:45 01/11/19 04:41 Lab Scanned Report REFERENCE LAB White Blood Count 8.3 Red Blood Count 4.81 Hemoglobin 13.8 L Hematocrit 41.0 L Mean Corpuscular Volume 85.2 Mean Corpuscular Hemoglobin 28.7 L Mean Corpuscular Hemoglobin Concent 33.7 Red Cell Distribution Width 11.9 Platelet Count 273 Mean Platelet Volume 8.0 Immature Granulocytes % 0.200 Neutrophils % 71.5 Lymphocytes % 16.5 Monocytes % 9.4 Eosinophils % 1.8 Basophils % 0.6 Nucleated Red Blood Cells % 0.0 Immature Granulocytes # 0.020 Neutrophils # 5.9 Lymphocytes # 1.4 Monocytes # 0.8 Eosinophils # 0.2 Basophils # 0.1 Nucleated Red Blood Cells # 0.0 Sodium Level 142 Potassium Level 4.3 Chloride Level 110 Carbon Dioxide Level 26 Anion Gap 6 Blood Urea Nitrogen 23 H Creatinine 1.58 H Est Glomerular Filtrat Rate mL/min 56 L Glucose Level 107 Calcium Level 8.9 Phosphorus Level 3.9 Magnesium Level 2.2 Medications Medication Current Medications Sodium Chloride 1,000 ml @ 125 mls/hr Q8H IV Last administered on 01/11/19at 06:16; Admin Dose 125 MLS/HR; Start 01/08/19 at 21:21 IV Flush (NS 3 ml) 3 ml PER PROTOCOL IV ; Start 01/08/19 at 21:30 Ondansetron HCl (Zofran Inj) 4 mg Q6H PRN IV NAUSEA/VOMITING; Start 01/08/19 at 21:30 Acetaminophen (Tylenol Tab) 650 mg Q6H PRN PO .PAIN 1-3 OR TEMP Last administered on 01/09/19at 20:23; Admin Dose 650 MG; Start 01/08/19 at 21:30 Acetaminophen/ Hydrocodone Bitart ([place] (5/325)) 1 tab Q6H PRN PO .MOD PAIN 4- 6 Last administered on 01/10/19at 07:05; Admin Dose 1 TAB; Start 01/08/19 at 21:30 Hydromorphone HCl (Dilaudid) 0.5 mg Q4H PRN IV .SEVERE PAIN 7-10 Last administered on 01/10/19at 22:25; Admin Dose 0.5 MG; Start 01/08/19 at 21:30 Docusate Sodium (Colace) 100 mg Q12H PRN PO .CONSTIPATION; Start 01/08/19 at 21:30 Bisacodyl (Dulcolax) 5 mg DAILY PRN PO .CONSTIPATION; Start 01/08/19 at 21:30 Tamsulosin HCl (Flomax) 0.4 mg HS PO Last administered on 01/10/19 21:58; Admin Dose 0.4 MG; Start 01/08/19 at 21:30 Ceftriaxone Sodium 50 ml @ 100 mls/hr Q24H IVPB Last administered on 01/11/19 02:31; Admin Dose 100 MLS/HR; Start 01/09/19 at 02:00 Mupirocin (Bactroban) 1 applic BID TOP Last administered on 01/10/19 21:58; Admin Dose 1 APPLIC; Start 01/10/19 at 10:30 Magnesium Hydroxide (Milk Of Mag) 30 ml DAILY PRN PO CONSTIPATION; Start 01/10/19 at 14:00 Lorazepam (Ativan) 1 mg Q6H PRN IV ANXIETY Last administered on 01/10/19at 22:51; Admin Dose 1 MG; Start 01/10/19 at 17:30 PRASANNA CORTES NP Jan 11, 2019 08:01
[2019-01-11 08:08] VITALS: BP 148/83; PULSE 86; RESP 20
[2019-01-11] MEDS: MUPIROCIN 2% 22 GM OINT TOP SCH ×2 (08:57→20:50)
[2019-01-11] MEDS: POLYETHYLENE GLYCOL 17 GM PACKET PO SCH ×2 (09:52→20:50)
[2019-01-11] MEDS: HYDROCODONE/APAP (5/325) TAB PO PRN ×2 (11:40→19:54)
[2019-01-11 14:54] VITALS: BP 159/98; PULSE 89; RESP 20
--- NOTE | 2019-01-11 16:13 | CONS ---
Consult Date/Type/Reason Admit Date/Time Jan 09, 2019 at 15:29 Initial Consult Date 01/09/19 Type of Consultation: Urology Reason for Consultation Distal right ureteral stone Requesting Provider: EDU RO Date/Time of Note DATE: 01/11/19 TIME: 16:09 Subjective At the present the patient is comfortable and denies having severe pain Objective Vitals Vital Signs Date Temp Pulse Resp B/P (MAP) Pulse Ox O2 O2 Flow FiO2 Time Delivery Rate 01/11/19 98.0 89 20 159/98 98 Room Air 14:54 (118) Intake and Output 01/10/19 01/10/19 01/11/19 1515:00 23:00 07:00 IntakeIntake Total 240 ml 1640 ml 1170 ml OutputOutput Total 900 ml 1100 ml 250 ml BalanceBalance -660 ml 540 ml 920 ml Exam He has right flank tenderness. Results/Medications Result Diagram: 01/11/191 01/11/19 0441 Results 24 hrs Laboratory Tests Test 01/11/19 04:41 White Blood Count 8.3 Red Blood Count 4.81 Hemoglobin 13.8 L Hematocrit 41.0 L Mean Corpuscular Volume 85.2 Mean Corpuscular Hemoglobin 28.7 L Mean Corpuscular Hemoglobin Concent 33.7 Red Cell Distribution Width 11.9 Platelet Count 273 Mean Platelet Volume 8.0 Immature Granulocytes % 0.200 Neutrophils % 71.5 Lymphocytes % 16.5 Monocytes % 9.4 Eosinophils % 1.8 Basophils % 0.6 Nucleated Red Blood Cells % 0.0 Immature Granulocytes # 0.020 Neutrophils # 5.9 Lymphocytes # 1.4 Monocytes # 0.8 Eosinophils # 0.2 Basophils # 0.1 Nucleated Red Blood Cells # 0.0 Sodium Level 142 Potassium Level 4.3 Chloride Level 110 Carbon Dioxide Level 26 Anion Gap 6 Blood Urea Nitrogen 23 H Creatinine 1.58 H Est Glomerular Filtrat Rate mL/min 56 L Glucose Level 107 Calcium Level 8.9 Phosphorus Level 3.9 Magnesium Level 2.2 Home Meds Active Scripts Hydrocodone/Acetaminophen ([place] 5-325 Tablet) 1 Each Tablet, 1 TAB PO Q6H PRN for PAIN, #30 TAB Prov:TESSA PIMENTEL PA-C 03/09/18 Hydrocodone/Acetaminophen ([place] 5-325 Tablet) 1 Each Tablet, 1 TAB PO Q6H PRN for PAIN, #30 TAB Prov:TESSA PIMENTEL PA-C 03/09/18 Ciprofloxacin Hcl* (Ciprofloxacin Hcl*) 500 Mg Tablet, 500 MG PO BID for 7 Days, TAB Prov:TESSA PIMENTEL PA-C 03/09/18 Reported Medications Quetiapine Fumarate* (Seroquel* XR) 300 Mg Tab.sr.24h, 300 MG PO DAILY PRN for NEEDED, #30 TAB 03/07/18 Medications Current Medications Sodium Chloride 1,000 ml @ 125 mls/hr Q8H IV Last administered on 01/11/19 06:16; Admin Dose 125 MLS/HR; Start 01/08/19 at 21:21 IV Flush (NS 3 ml) 3 ml PER PROTOCOL IV ; Start 01/08/19 at 21:30 Ondansetron HCl (Zofran Inj) 4 mg Q6H PRN IV NAUSEA/VOMITING; Start 01/08/19 at 21:30 Acetaminophen (Tylenol Tab) 650 mg Q6H PRN PO .PAIN 1-3 OR TEMP Last administered on 01/09/19 20:23; Admin Dose 650 MG; Start 01/08/19 at 21:30 Acetaminophen/ Hydrocodone Bitart ([place] (5/325)) 1 tab Q6H PRN PO .MOD PAIN 4- 6 Last administered on 01/11/19 11:40; Admin Dose 1 TAB; Start 01/08/19 at 21:30 Hydromorphone HCl (Dilaudid) 0.5 mg Q4H PRN IV .SEVERE PAIN 7-10 Last administered on 01/10/19 22:25; Admin Dose 0.5 MG; Start 01/08/19 at 21:30 Docusate Sodium (Colace) 100 mg Q12H PRN PO .CONSTIPATION; Start 01/08/19 at 21:30 Bisacodyl (Dulcolax) 5 mg DAILY PRN PO .CONSTIPATION; Start 01/08/19 at 21:30 Tamsulosin HCl (Flomax) 0.4 mg HS PO Last administered on 01/10/19 21:58; Adm in Dose 0.4 MG; Start 01/08/19 at 21:30 Ceftriaxone Sodium 50 ml @ 100 mls/hr Q24H IVPB Last administered on 01/11/19 02:31; Admin Dose 100 MLS/HR; Start 01/09/19 at 02:00 Mupirocin (Bactroban) 1 applic BID TOP Last administered on 01/11/19at 08:57; Admin Dose 1 APPLIC; Start 01/10/19 at 10:30 Magnesium Hydroxide (Milk Of Mag) 30 ml DAILY PRN PO CONSTIPATION; Start 01/10/19 at 14:00 Lorazepam (Ativan) 1 mg Q6H PRN IV ANXIETY Last administered on 01/10/19at 22:51; Admin Dose 1 MG; Start 01/10/19 at 17:30 Polyethylene Glycol (Miralax) 17 gm BID PO Last administered on 01/11/19at 09:52; Admin Dose 17 GM; Start 01/11/19 at 09:30 Assessment/Plan Hospital Course (Demo Recall) 53-year-old homeless male presented to [facility] with complaints of right lower abdominal pain. Patient was subsequent transferred to [facility] because of his insurance. Patient has a history of kidney stones and lithotripsy. He reports pain on the right lower abdomen/flank for the last two days prior to admission. Denies any nausea or vomiting and there is no history of hematuria or dysuria. He did have left upper ureteral stone on which I operated about an year ago KUB repeated and did not show the stone. The stone could be radiolucent or could be obscured by the bowel contents or the bony pelvis. I therefore ordered to do a CT scan of the abdomen and pelvis without IV contrast to see if the stone still in the distal ureter or he passed it. Continue to strain the urine and the tamsulosin, give him milk of magnesia, I did schedule him for cystoscopy, right ureteroscopy, laser lithotripsy and insertion of right ureteral JJ stent for tomorrow evening. I explained the procedure to him, the benefits, the risks and the possible complications and answered all his questions. He is agreeable to proceed. ESTEPHANIA WONG MD Jan 11, 2019 16:13
[2019-01-11 20:08] VITALS: BP 171/103; PULSE 98; RESP 16
[2019-01-11] MEDS: TAMSULOSIN (SR) 0.4 MG CAP PO SCH (20:50)
[2019-01-11 20:54] VITALS: BP 180/97; PULSE 82; RESP 18
[2019-01-11] MEDS ORDERED: AMLODIPINE 5 MG TAB PO ONE (21:00)
[2019-01-11] MEDS: LORAZEPAM 2 MG INJ IV PRN (23:53)
[2019-01-11 23:58] VITALS: BP 156/93; PULSE 83; RESP 18
[2019-01-12] VITALS (16 sets, daily range): BP systolic 131–170; BP diastolic 51–110; PULSE 71–96; RESP 10–22
[2019-01-12] MEDS: SOD CHLORIDE 0.9% 1,000 ML IV SCH ×3 (00:01→21:15)
[2019-01-12] MEDS: CEFTRIAXONE 1 GM/50 ML (PMX) 50 ML IVPB SCH (02:22)
[2019-01-12] MEDS: MUPIROCIN 2% 22 GM OINT TOP SCH ×2 (09:16→21:13)
[2019-01-12] MEDS: POLYETHYLENE GLYCOL 17 GM PACKET PO SCH ×2 (09:17→21:23)
[2019-01-12] MEDS: HYDROCODONE/APAP (5/325) TAB PO PRN (09:21)
--- NOTE | 2019-01-12 13:29 | PN ---
Date/Time of Note Date/Time of Note DATE: 01/12/19 TIME: 13:27 Assessment/Plan VTE Prophylaxis Risk score (from Ns)>0 risk: 1 SCD applied (from Ns): Yes SCD contraindicated: low risk/ambulating Pharmacological prophylaxis: NA/contraindicated Pharm contraindication: surgical contra Lines/Catheters IV Catheter Type (from [facility]): Peripheral IV Urinary Cath still in place: No Assessment/Plan Hospital Course Assessment and plan 1. Right-sided hydro-nephrosis, stable, patient for cystoscopy later today 2. Nephrolithiasis acute on chronic, stable, patient for stent placement later today. Low perioperative risk, may proceed forward to procedure from medical standpoint 3. Substance abuse: Cocaine methamphetamine, counseling if feasible 4. CKD? 5. Hypertension, consider withdrawal 6. Failure to thrive/homeless: Will assist and follow-up plans accordingly Subjective: Minimal pain if any. No fever dyspnea or chest pain. Objective: Vital signs stable Physical exam No pallor Regular Clear Bs+ nt nd no r/r/g; no cvat No edema Result Diagram: 01/12/19 0435 01/12/19 0435 Results 24hrs Laboratory Tests Test 01/12/19 04:35 White Blood Count 7.4 Red Blood Count 4.88 Hemoglobin 13.7 L Hematocrit 41.2 L Mean Corpuscular Volume 84.4 Mean Corpuscular Hemoglobin 28.1 L Mean Corpuscular Hemoglobin Concent 33.3 Red Cell Distribution Width 11.9 Platelet Count 286 Mean Platelet Volume 8.1 Immature Granulocytes % 0.400 Neutrophils % 71.5 Lymphocytes % 16.2 Monocytes % 9.6 Eosinophils % 1.9 Basophils % 0.4 Nucleated Red Blood Cells % 0.0 Immature Granulocytes # 0.030 Neutrophils # 5.3 Lymphocytes # 1.2 Monocytes # 0.7 Eosinophils # 0.1 Basophils # 0.0 Nucleated Red Blood Cells # 0.0 Sodium Level 143 Potassium Level 4.5 Chloride Level 107 Carbon Dioxide Level 25 Anion Gap 11 Blood Urea Nitrogen 24 H Creatinine 1.57 H Est Glomerular Filtrat Rate mL/min 56 L Glucose Level 105 Calcium Level 9.2 Phosphorus Level 4.2 Magnesium Level 2.0 Exam/Review of Systems Exam Vitals Vital Signs Date Temp Pulse Resp B/P (MAP) Pulse Ox O2 O2 Flow FiO2 Time Delivery Rate 01/12/19 98.0 96 18 142/96 95 07:28 (111) 01/11/19 Room Air 23:58 Intake and Output 01/11/19 01/11/19 01/12/19 1515:00 23:00 07:00 IntakeIntake Total 1120 ml 1040 ml 975 ml OutputOutput Total 2300 ml 400 ml 600 ml BalanceBalance -1180 ml 640 ml 375 ml Results Results 24hrs Laboratory Tests Test 01/12/19 04:35 White Blood Count 7.4 Red Blood Count 4.88 Hemoglobin 13.7 L Hematocrit 41.2 L Mean Corpuscular Volume 84.4 Mean Corpuscular Hemoglobin 28.1 L Mean Corpuscular Hemoglobin Concent 33.3 Red Cell Distribution Width 11.9 Platelet Count 286 Mean Platelet Volume 8.1 Immature Granulocytes % 0.400 Neutrophils % 71.5 Lymphocytes % 16.2 Monocytes % 9.6 Eosinophils % 1.9 Basophils % 0.4 Nucleated Red Blood Cells % 0.0 Immature Granulocytes # 0.030 Neutrophils # 5.3 Lymphocytes # 1.2 Monocytes # 0.7 Eosinophils # 0.1 Basophils # 0.0 Nucleated Red Blood Cells # 0.0 Sodium Level 143 Potassium Level 4.5 Chloride Level 107 Carbon Dioxide Level 25 Anion Gap 11 Blood Urea Nitrogen 24 H Creatinine 1.57 H Est Glomerular Filtrat Rate mL/min 56 L Glucose Level 105 Calcium Level 9.2 Phosphorus Level 4.2 Magnesium Level 2.0 Medications Medication Current Medications Sodium Chloride 1,000 ml @ 125 mls/hr Q8H IV Last administered on 01/12/19at 09:17; Admin Dose 125 MLS/HR; Start 01/08/19 at 21:21 IV Flush (NS 3 ml) 3 ml PER PROTOCOL IV ; Start 01/08/19 at 21:30 Ondansetron HCl (Zofran Inj) 4 mg Q6H PRN IV NAUSEA/VOMITING; Start 01/08/19 at 21:30 Acetaminophen (Tylenol Tab) 650 mg Q6H PRN PO .PAIN 1-3 OR TEMP Last a dministered on 01/09/19at 20:23; Admin Dose 650 MG; Start 01/08/19 at 21:30 Acetaminophen/ Hydrocodone Bitart ([place] (5/325)) 1 tab Q6H PRN PO .MOD PAIN 4- 6 Last administered on 01/12/19at 09:21; Admin Dose 1 TAB; Start 01/08/19 at 21:30 Hydromorphone HCl (Dilaudid) 0.5 mg Q4H PRN IV .SEVERE PAIN 7-10 Last administered on 01/10/19 22:25; Admin Dose 0.5 MG; Start 01/08/19 at 21:30 Docusate Sodium (Colace) 100 mg Q12H PRN PO .CONSTIPATION; Start 01/08/19 at 21:30 Bisacodyl (Dulcolax) 5 mg DAILY PRN PO .CONSTIPATION; Start 01/08/19 at 21:30 Tamsulosin HCl (Flomax) 0.4 mg HS PO Last administered on 01/11/19 20:50; Admin Dose 0.4 MG; Start 01/08/19 at 21:30 Ceftriaxone Sodium 50 ml @ 100 mls/hr Q24H IVPB Last administered on 01/12/19 02:22; Admin Dose 100 MLS/HR; Start 01/09/19 at 02:00 Mupirocin (Bactroban) 1 applic BID TOP Last administered on 01/12/19 09:16; Admin Dose 1 APPLIC; Start 01/10/19 at 10:30 Magnesium Hydroxide (Milk Of Mag) 30 ml DAILY PRN PO CONSTIPATION; Start at 14:00 Lorazepam (Ativan) 1 mg Q6H PRN IV ANXIETY Last administered on 01/11/19 23:53; Admin Dose 1 MG; Start 01/10/19 at 17:30 Polyethylene Glycol (Miralax) 17 gm BID PO Last administered on 01/12/19 09:17; Admin Dose 17 GM; Start 01/11/19 at 09:30 EAMON DENNIS MD Jan 12, 2019 13:29
[2019-01-12] MEDS ORDERED: HYDROCODONE/APAP (10/325) TAB PO PRN (13:30)
[2019-01-12] MEDS: LORAZEPAM 2 MG INJ IV PRN (16:08)
[2019-01-12] MEDS ORDERED: IOHEXOL 300MG/ML 30 ML BTL ONE (18:00)
--- NOTE | 2019-01-12 18:09 | PREAC ---
Date/Time of Note Date/Time of Note DATE: 01/12/19 TIME: 18:07 Anesthesia Eval and Record Evaluation Time Pre-Procedure Interview DATE: 01/12/19 TIME: 18:07 Age 53 Sex male NPO: 8 hrs Preoperative diagnosis right distal ureteral stone Planned procedure cystoscopy, right ureteroscopy, LASER lithotripsy Past Medical History Past Medical History: Includes (homeless`) Cardio: HTN Renal: JOSSELINE, CKD Recreational drugs: Cocaine, Other (Metamphetamine) Surgery & Anesthesia Issues No known issue Meds Anticoagulation: No Beta Damon within 24 hr: No Reason Beta Damon not given: Pt. not on B-Damon Active Scripts Hydrocodone/Acetaminophen ([place] 5-325 Tablet) 1 Each Tablet, 1 TAB PO Q6H PRN for PAIN, #30 TAB Prov:TESSA PIMENTEL PA-C 03/09/18 Hydrocodone/Acetaminophen ([place] 5-325 Tablet) 1 Each Tablet, 1 TAB PO Q6H PRN for PAIN, #30 TAB Prov:TESSA PIMENTEL PA-C 03/09/18 Ciprofloxacin Hcl* (Ciprofloxacin Hcl*) 500 Mg Tablet, 500 MG PO BID for 7 Days, TAB Prov:TESSA PIMENTEL PA-C 03/09/18 Reported Medications Quetiapine Fumarate* (Seroquel* XR) 300 Mg Tab.sr.24h, 300 MG PO DAILY PRN for NEEDED, #30 TAB 03/07/18 Current Medications Sodium Chloride 1,000 ml @ 125 mls/hr Q8H IV Last administered on 01/12/19at 09:17; Admin Dose 125 MLS/HR; Start 01/08/19 at 21:21 IV Flush (NS 3 ml) 3 ml PER PROTOCOL IV ; Start 01/08/19 at 21:30 Ondansetron HCl (Zofran Inj) 4 mg Q6H PRN IV NAUSEA/VOMITING; Start 01/08/19 at 21:30 Acetaminophen (Tylenol Tab) 650 mg Q6H PRN PO .PAIN 1-3 OR TEMP Last administered on 01/09/19at 20:23; Admin Dose 650 MG; Start 01/08/19 at 21:30 Hydromorphone HCl (Dilaudid) 0.5 mg Q4H PRN IV .SEVERE PAIN 7-10 Last administered on 01/10/19at 22:25; Admin Dose 0.5 MG; Start 01/08/19 at 21:30 Docusate Sodium (Colace) 100 mg Q12H PRN PO .CONSTIPATION; Start 01/08/19 at 21:30 Bisacodyl (Dulcolax) 5 mg DAILY PRN PO .CONSTIPATION; Start 01/08/19 at 21:30 Tamsulosin HCl (Flomax) 0.4 mg HS PO Last administered on 01/11/19at 20:50; Admin Dose 0.4 MG; Start 01/08/19 at 21:30 Ceftriaxone Sodium 50 ml @ 100 mls/hr Q24H IVPB Last administered on 01/12/19 02:22; Admin Dose 100 MLS/HR; Start 01/09/19 at 02:00 Mupirocin (Bactroban) 1 applic BID TOP Last administered on 01/12/19at 09:16; Admin Dose 1 APPLIC; Start 01/10/19 at 10:30 Magnesium Hydroxide (Milk Of Mag) 30 ml DAILY PRN PO CONSTIPATION; Start 01/10/19 at 14:00 Lorazepam (Ativan) 1 mg Q6H PRN IV ANXIETY Last administered on 01/12/19at 16:08; Admin Dose 1 MG; Start 01/10/19 at 17:30 Polyethylene Glycol (Miralax) 17 gm BID PO Last administered on 01/12/19 09:17; Admin Dose 17 GM; Start 01/11/19 at 09:30 Acetaminophen/ Hydrocodone Bitart ([place] (10/325)) 1 tab Q4H PRN PO MODERATE PAIN LEVEL 4-6; Start 01/12/19 at 13:30 Senna/Docusate Sodium (Senokot-S) 2 tab AM PO ; Start 01/13/19 at 09:00 Meds reviewed: Yes Allergies Coded Allergies: No Known Drug Allergies (Verified Allergy, Unknown, 03/07/18) Allergies Reviewed: Yes Labs/Studies Labs Reviewed: Reviewed by anesthesiologist Result Diagram: 01/12/19 0435 01/12/19 0435 Laboratory Tests 01/12/19 04:35 test: N/A Studies: ECG (non specific ST-T changes), CXR (mild cardiomegaly) Pre-procedure Exam Last vitals Vital Signs Date Temp Pulse Resp B/P (MAP) Pulse Ox O2 O2 Flow FiO2 Time Delivery Rate 01/12/19 98.0 76 18 158/93 93 14:00 (114) 01/11/19 Room Air 23:58 Airway: Adequate mouth opening, Adequate thyromental dist Mallampati: Mallampati II Teeth: Normal Lung: Normal Heart: Normal ASA Physical Status ASA physical status: 2 Emergency: None Planned Anesthetic General/MAC: ETT Planned Pain Management Parenteral pain med Pre-operative Attestations Prior to commencing anesthesia and surgery, the patient was re-evaluated, there was verification of: *The patient's identity *The results of appropriate recent lab work and preoperative vital signs *The above evaluation not changing prior to induction *Anesthetic plan, risk benefits, alternative and complications discussed with patient/family; questions answered; patient/family understands, accepts and wishes to proceed. Ryland Marie M.D. Jan 12, 2019 18:09
[2019-01-12] MEDS ORDERED: CEFAZOLIN 1 GM INJ ONE (18:16)
[2019-01-12] MEDS ORDERED: ROCURONIUM 50 MG INJ ONE (18:16)
[2019-01-12] MEDS ORDERED: NEOSTIGMINE 3 MG/3 ML SYRINGE ONE (18:16)
[2019-01-12] MEDS ORDERED: PROPOFOL 20 ML ONE (18:16)
[2019-01-12] MEDS ORDERED: GLYCOPYRROLATE 0.4 MG INJ ONE (18:16)
[2019-01-12] MEDS ORDERED: MIDAZOLAM 1 MG/ML 2 ML INJ ONE (18:18)
[2019-01-12] MEDS ORDERED: FENTAnyl 50 MCG/ML VIAL ONE ×2 (18:18→19:27)
[2019-01-12] MEDS ORDERED: ONDANSETRON 4 MG INJ ONE (18:18)
[2019-01-12] MEDS ORDERED: DEXAMETHASONE 4 MG/ML 5 ML INJ ONE (18:18)
[2019-01-12] MEDS ORDERED: DIPHENHYDRAMINE 50 MG INJ IV PRN (18:30)
[2019-01-12] MEDS ORDERED: ONDANSETRON 4 MG INJ IV PRN (18:30)
[2019-01-12] MEDS ORDERED: TRIMETHOBENZAMIDE 100 MG/ML VIAL IM PRN (18:30)
[2019-01-12] MEDS ORDERED: ALBUTEROL 0.083% (NEB) 2.5 MG/3 ML AMP HHN PRN (18:30)
[2019-01-12] MEDS ORDERED: LABETALOL HCL 20MG INJ IV PRN (18:30)
[2019-01-12] MEDS ORDERED: hydrALAzine 20 MG INJ IV PRN (18:30)
[2019-01-12] MEDS ORDERED: HYDROmorphONE 1 MG/5 ML IV SYRINGE IV PRN ×3 (18:30)
[2019-01-12] MEDS ORDERED: OXYCODONE/ACETAMINOPHEN (5/325) TAB PO PRN ×2 (18:30)
[2019-01-12] MEDS ORDERED: EPHEDrine SULFATE 50 MG/5 ML SYG IV PRN (18:30)
[2019-01-12] MEDS ORDERED: IPRATROPIUM (NEB) 0.5 MG/2.5 ML AMP HHN PRN (18:30)
[2019-01-12] MEDS ORDERED: MEPERIDINE 25 MG INJ IV PRN (18:30)
[2019-01-12] MEDS ORDERED: FENTAnyl 50 MCG/ML VIAL IV PRN ×3 (18:30)
[2019-01-12] MEDS ORDERED: MIDAZOLAM 1 MG/ML 2 ML INJ IV PRN (18:30)
[2019-01-12] MEDS ORDERED: LABETALOL HCL 20MG INJ ONE (18:35)
--- NOTE | 2019-01-12 18:40 | RADRPT ---
Vent Rate: 74 bpm RR Interval: 0 msec WI Interval: 164 msec QRS Duration: 84 msec QT Interval: 388 msec QTC Interval: 430 msec P-R-T [place]: 58 - 61 - 49 degrees Normal sinus rhythm Nonspecific ST and T wave abnormality Abnormal ECG Electronically Signed By: Pancho Morales
[2019-01-12] MEDS ORDERED: PHENYLephrine (100 MCG/ML) 10ML SYG ONE (18:46)
[2019-01-12] MEDS ORDERED: SUGAMMADEX SODIUM 200 MG/2 ML VIAL IV ONE ×2 (19:38→19:46)
--- NOTE | 2019-01-12 20:00 | OPR ---
Date/Time of Note Date/Time of Note DATE: 01/12/19 TIME: 19:54 Operative Report Procedure Date: Jan 12, 2019 Preoperative Diagnosis Right ureteral stone Postoperative Diagnosis Same Operation/Procedure Performed Cystoscopy, right ureteroscopy, laser lithotripsy, and insertion of right ureteral JJ stent 6 [place] by 24 cm long Surgeon see signature line Performance Improvement Coordinator cardiovascular radiologic technologist Josh Anesthesia Type: general Anesthesiologist: Ryland Marie M.D. Estimated Blood Loss: none Transfusion none Specimen Stone fragments from right ureter Grafts/Implants none Tubes/Drains Right ureteral JJ stent 6 [place] by 24 cm long Complications none Pt Condition Post Procedure: stable Disposition: PACU Indications Right ureteral JJ stent with obstruction, stone located at the lower edge of the sacroiliac joint Procedure Description The patient was brought to the operating room and general anesthesia was induced. The patient received 2 g of Ancef IV at the start of the procedure. Timeout was done and the patient was identified by his name,birthdate and the procedure and the side of the procedure. The patient was then positioned in the lithotomy position and the genital area was prepped and draped in the usual sterile manner. A 21 [place] cystoscope sheath was introduced under direct vision through the penile urethra and into the bladder. Urine was collected for culture and sensitivity. The right ureteral orifice was identified and then cannulated with a 5 [place] open ended ureteral catheter. A 0.035 zip wire was advanced through the open ended catheter all the way up to the kidney. The open-ended was removed leaving the zip wire in place. The open-ended was then introduced through the second working channel of the scope and the ureteral orifice was cannulated again and a 0.035 sensor wire was passed all the way up to the kidney. The open-ended was removed leaving the sensor wire in place. Then the cystoscope was removed. The sensor wire was used as a safety wire and the zip wire was used to advance the rigid ureteroscope on it into the ureter. The stone was then visualized and broken with the holmium laser into pieces. These pieces were basketed and dropped into the bladder until the ureter was free of stone fragments. The ureteroscope was then removed. Cystoscopy was done again and the stone fragments were drained out of the bladder. Then the cystoscope was reintroduced into the bladder over the safety wire and a 6 [place] by 24 cm long JJ stent was advanced on the sensor wire, had its proximal end curling into the kidney and the distal end curling into the bladder. The distal end is connected to a string that was taped to the patient's penis. The patient was transferred to recovery room in stable and satisfactory condition ESTEPHANIA WONG MD Jan 12, 2019 20:00
--- NOTE | 2019-01-12 21:22 | PAC ---
Date/Time of Note Date/Time of Note DATE: 01/12/19 TIME: 21:22 Post-Anesthesia Notes Post-Anesthesia Note Last documented vital signs Vital Signs Date Temp Pulse Resp B/P (MAP) Pulse Ox O2 O2 Flow FiO2 Time Delivery Rate 01/12/19 84 16 158/91 100 Nasal 2.0 20:40 (113) Cannula 01/12/19 98.2 19:54 Activity: WNL Respiratory function: WNL Cardiovascular function: WNL Mental status: Baseline Pain reasonably controlled: Yes Hydration appropriate: Yes Nausea/Vomiting absent: Yes Ryland Marie M.D. Jan 12, 2019 21:22
[2019-01-12] MEDS: TAMSULOSIN (SR) 0.4 MG CAP PO SCH (21:23)
[2019-01-13 00:45] VITALS: BP 147/85; PULSE 92; RESP 19
[2019-01-13] MEDS: CEFTRIAXONE 1 GM/50 ML (PMX) 50 ML IVPB SCH (01:56)
[2019-01-13] MEDS: SOD CHLORIDE 0.9% 1,000 ML IV SCH ×2 (01:57→08:36)
[2019-01-13 04:22] VITALS: BP 147/87; PULSE 97; RESP 18
[2019-01-13 08:17] VITALS: BP 145/80; PULSE 88; RESP 18
[2019-01-13] MEDS: LORAZEPAM 2 MG INJ IV PRN (08:28)
[2019-01-13] MEDS: POLYETHYLENE GLYCOL 17 GM PACKET PO SCH (08:28)
[2019-01-13] MEDS: MUPIROCIN 2% 22 GM OINT TOP SCH (08:29)
--- NOTE | 2019-01-13 08:57 | CONS ---
Consult Date/Type/Reason Admit Date/Time Jan 09, 2019 at 15:29 Initial Consult Date 01/09/19 Type of Consultation: Urology Reason for Consultation Right ureteral stone, patient status post right ureteroscopy, laser lithotripsy and insertion of right ureteral JJ stent Requesting Provider: EDU RO Date/Time of Note DATE: 01/13/19 TIME: 08:55 Subjective Patient is feeling better. He denies having any pain Objective Vitals Vital Signs Date Temp Pulse Resp B/P (MAP) Pulse Ox O2 O2 Flow FiO2 Time Delivery Rate 01/13/19 98.0 88 18 145/80 97 Room Air 08:17 (101) 01/12/19 2.0 20:40 Intake and Output 01/12/19 01/12/19 01/13/19 1414:59 22:59 06:59 IntakeIntake Total 475 ml 2200 ml 1090 ml OutputOutput Total 200 ml 500 ml 1400 ml BalanceBalance 275 ml 1700 ml -310 ml Exam Abdomen is soft and there is no flank tenderness. Results/Medications Result Diagram: 01/13/19 0452 01/13/19 0452 Results 24 hrs Laboratory Tests Test 01/13/19 04:52 White Blood Count 8.6 Red Blood Count 4.71 Hemoglobin 13.3 L Hematocrit 39.0 L Mean Corpuscular Volume 82.8 Mean Corpuscular Hemoglobin 28.2 L Mean Corpuscular Hemoglobin Concent 34.1 Red Cell Distribution Width 11.9 Platelet Count 285 Mean Platelet Volume 8.2 Immature Granulocytes % 0.300 Neutrophils % 89.5 H Lymphocytes % 7.0 L Monocytes % 3.1 Eosinophils % 0.0 Basophils % 0.1 Nucleated Red Blood Cells % 0.0 Immature Granulocytes # 0.030 Neutrophils # 7.7 H Lymphocytes # 0.6 L Monocytes # 0.3 Eosinophils # 0.0 Basophils # 0.0 Nucleated Red Blood Cells # 0.0 Prothrombin Time 13.0 Prothrombin Time Ratio 1.0 INR International Normalized Ratio 0.97 Sodium Level 140 Potassium Level 4.6 Chloride Level 104 Carbon Dioxide Level 24 Anion Gap 12 Blood Urea Nitrogen 23 H Creatinine 1.60 H Est Glomerular Filtrat Rate mL/min 55 L Glucose Level 207 # Calcium Level 9.3 Total Bilirubin 0.1 L Direct Bilirubin 0.00 Indirect Bilirubin 0.1 Aspartate Amino Transf (AST/SGOT) 21 Alanine Aminotransferase (ALT/SGPT) 26 Alkaline Phosphatase 65 Total Protein 6.5 Albumin 3.6 Globulin 2.90 Albumin/Globulin Ratio 1.24 Thyroid Stimulating Hormone (TSH) 0.543 Hepatitis B Surface Antigen NEGATIVE Hepatitis B Core Total Antibody REACTIVE H Hepatitis C Antibody NEGATIVE Home Meds Active Scripts Hydrocodone/Acetaminophen ([place] 5-325 Tablet) 1 Each Tablet, 1 TAB PO Q6H PRN for PAIN, #30 TAB Prov:TESSA PIMENTEL PA-C 03/09/18 Hydrocodone/Acetaminophen ([place] 5-325 Tablet) 1 Each Tablet, 1 TAB PO Q6H PRN for PAIN, #30 TAB Prov:TESSA PIMENTEL PA-C 03/09/18 Ciprofloxacin Hcl* (Ciprofloxacin Hcl*) 500 Mg Tablet, 500 MG PO BID for 7 Days, TAB Prov:TESSA PIMENTEL PA-C 03/09/18 Reported Medications Quetiapine Fumarate* (Seroquel* XR) 300 Mg Tab.sr.24h, 300 MG PO DAILY PRN for NEEDED, #30 TAB 03/07/18 Medications Current Medications Sodium Chloride 1,000 ml @ 125 mls/hr Q8H IV Last administered on 01/13/19at 08:36; Admin Dose 125 MLS/HR; Start 01/08/19 at 21:21 IV Flush (NS 3 ml) 3 ml PER PROTOCOL IV ; Start 01/08/19 at 21:30 Ondansetron HCl (Zofran Inj) 4 mg Q6H PRN IV NAUSEA/VOMITING; Start 01/08/19 at 21:30 Acetaminophen (Tylenol Tab) 650 mg Q6H PRN PO .PAIN 1-3 OR TEMP Last administered on 01/09/19at 20:23; Admin Dose 650 MG; Start 01/08/19 at 21:30 Hydromorphone HCl (Dilaudid) 0.5 mg Q4H PRN IV .SEVERE PAIN 7-10 Last administered on 01/10/19at 22:25; Admin Dose 0.5 MG; Start 01/08/19 at 21:30 Docusate Sodium (Colace) 100 mg Q12H PRN PO .CONSTIPATION; Start 01/08/19 at 21:30 Bisacodyl (Dulcolax) 5 mg DAILY PRN PO .CONSTIPATION; Start 01/08/19 at 21:30 Tamsulosin HCl (Flomax) 0.4 mg HS PO Last administered on 01/12/19 21:23; Admin Dose 0.4 MG; Start 01/08/19 at 21:30 Ceftriaxone Sodium 50 ml @ 100 mls/hr Q24H IVPB Last administered on 01/13/19 01:56; Admin Dose 100 MLS/HR; Start 01/09/19 at 02:00 Mupirocin (Bactroban) 1 applic BID TOP Last administered on 01/13/19 08:29; Admin Dose 1 APPLIC; Start 01/10/19 at 10:30 Magnesium Hydroxide (Milk Of Mag) 30 ml DAILY PRN PO CONSTIPATION; Start 01/10/19 at 14:00 Lorazepam (Ativan) 1 mg Q6H PRN IV ANXIETY Last administered on 01/13/19 08:28; Admin Dose 1 MG; Start 01/10/19 at 17:30 Polyethylene Glycol (Miralax) 17 gm BID PO Last administered on 01/13/19 08:28; Admin Dose 17 GM; Start 01/11/19 at 09:30 Acetaminophen/ Hydrocodone Bitart ([place] (10/325)) 1 tab Q4H PRN PO MODERATE PAIN LEVEL 4-6; Start 01/12/19 at 13:30 Senna/Docusate Sodium (Senokot-S) 2 tab AM PO Last administered on 01/13/19 08 :29; Admin Dose 2 TAB; Start 01/13/19 at 09:00 Assessment/Plan Hospital Course (Demo Recall) 53-year-old homeless male presented to [facility] with complaints of right lower abdominal pain. Patient was subsequent transferred to [facility] because of his insurance. Patient has a history of kidney stones and lithotripsy. He reports pain on the right lower abdomen/flank for the last two days prior to admission. Denies any nausea or vomiting and there is no history of hematuria or dysuria. He did have left upper ureteral stone on which I operated about an year ago Patient underwent cystoscopy, right ureteroscopy, laser lithotripsy and insertion of right ureteral JJ stent on 01/12/2019. He is doing well this morning. He may be discharged on oral pain medications and antibiotic. I instructed him to come to my office on Saturday to remove the JJ stent which has a string attached to it and taped onto his penis. Patient does have my card with my name and my phone number and he already knows my office location. He should come to my office to remove the JJ stent. ESTEPHANIA WONG MD Jan 13, 2019 08:57
[2019-01-13] MEDS ORDERED: SENNA/DOCUSATE NA (8.6MG/50MG) TAB PO SCH (09:00)
--- NOTE | 2019-01-13 10:24 | PDOCDIS ---
Discharge Instructions CONDITION [id number] Patient Condition: [id number] Stable HOME CARE INSTRUCTIONS: [id number] Diet Instructions: [id number] Reduced Sodium ACTIVITY: [id number] Activity Restrictions: [id number] Rest between Activity FOLLOW UP/APPOINTMENTS Follow-up Plan appt primary 1-[address] Ramirez 1wk EAMON DENNIS MD Jan 13, 2019 10:24
[2019-01-13] MEDS ORDERED: MUPI22OI2 TOP (10:26)
[2019-01-13] MEDS ORDERED: CIPR500T4 PO (10:26)
[2019-01-13] MEDS ORDERED: TAMS-14 PO (10:26)
[2019-01-13] MEDS ORDERED: ACET325T33 PO (10:26)
== END 2019-01-13 11:00 | disposition home or self-care (01) | DRG 661 ==
LOC: 6WM 20:08 → INTOOBSV 20:08 → OBSVTOIN 01-09 15:29 → MS1 01-09 17:04
PROVIDERS: ADMIT Internal Medicine; ATTEND Internal Medicine
PROC: 0T768DZ Dilation of Right Ureter with Intraluminal Device, Via Natural or Artificial Opening Endoscopic (ICD-10-PCS; 2019-01-12)
PROC: 0TC68ZZ Extirpation of Matter from Right Ureter, Via Natural or Artificial Opening Endoscopic (ICD-10-PCS; principal; 2019-01-12 17:30)
DX: N13.2 Hydronephrosis with renal and ureteral calculous obstruction (principal); N17.9 Acute kidney failure, unspecified; Z59.0 Homelessness; F17.200 Nicotine dependence, unspecified, uncomplicated; F14.10 Cocaine abuse, uncomplicated; F15.10 Other stimulant abuse, uncomplicated; R62.7 Adult failure to thrive; Z68.26 Body mass index [BMI] 26.0-26.9, adult
CPT/HCPCS: 71045; 74018; 74176; 74430; 80048; 80053; 80307; 81001; 83735; 84100; 84443; 85025; 85610; 85730; 86704; 86709; 86803; 87081; 87086; 87340; 88300; 93005; 99217; C2617; G0378; J0690; J0696; J1100; J1170; J1200; J2060; J2175; J2250; J2370; J2405; J2710; J3010; J7030; Q9967